=== PATIENT | female | born 1990 | race Caucasian/White ===

== ENCOUNTER 2017-01-10 19:32 | Emergency (ER) | payer SELFPAY ==
[~2017-01-10] VITALS: Ht 157.5 cm; Wt 61.0 kg
[~2017-01-10 19:32] MED LIST: FLAG500T PO; PNV-TAB PO
[2017-01-10 19:35] VITALS: BP 147/84; PULSE 82; RESP 14; TEMP 98.2; O2SAT 100
== END 2017-01-10 19:59 | disposition left against medical advice (07) ==
LOC: NED 19:32
DX: R68.89 Other general symptoms and signs (principal)
CPT/HCPCS: 99281

== ENCOUNTER 2017-02-08 19:01 | Emergency (ER) | payer MEDICAID ==
[2017-02-08 19:02] VITALS: BP 115/73; PULSE 105; RESP 18; TEMP 99; O2SAT 98
== END 2017-02-08 20:10 | disposition left against medical advice (07) ==
LOC: NED 19:01
DX: Z53.29 Procedure and treatment not carried out because of patient's decision for other reasons (principal)
CPT/HCPCS: 99281

== ENCOUNTER 2017-03-10 11:30 | Emergency (ER) | payer MEDICAID ==
[~2017-03-10] VITALS: Ht 157.5 cm; Wt 62.0 kg
[2017-03-10 11:32] VITALS: BP 126/71; PULSE 84; RESP 16; TEMP 98; O2SAT 99
[2017-03-10 11:51] VITALS: BP 109/59; PULSE 84; RESP 16; O2SAT 99
--- NOTE | 2017-03-10 12:09 | PD ---
HPI Chief Complaint: Related Problem Time Seen by Provider: 12:01 Travel History International Travel<30 days: No Contact w/Intl Traveler<30days: No Traveled to known affect area: No History of Present Illness HPI 27-year-old female presents to the emergency department for evaluation of abnormal vaginal discharge, pelvic cramping, spotting that occurred 2 days ago. Patient reports being 16 weeks 5 days . She states she had ultrasound 2 days ago at the [facility] 1 and and was told that she was 16 weeks and 3 days. She apparently went to the OB ED for evaluation and sent her back to the emergency department to prove that she was over 16 weeks . The patient is concerned that she has an STD. The patient reports being a G7, P2 with 3 previous abortions and one previous miscarriage. She has had no care at this point. Patient denies any other medical problems. She takes no prescribed medications. PFSH Past Medical History Medical History: Denies Significant Hx Influenza Vaccination: No ?: : 5 Para: 1 Miscarriage: 1 : 2 Social History Alcohol Use: No Tobacco Use: Yes Substance Use: No Allergies-Medications (Allergen,Severity, Reaction): Coded Allergies: No Known Allergies (Unverified , 03/10/17) Reported Meds & Prescriptions Reported Meds & Active Scripts Active No Active Prescriptions or Reported Medications Review of Systems Except as stated in HPI: all other systems reviewed are Neg Physical Exam Narrative GENERAL: Well-nourished, well-developed female patient, afebrile. SKIN: Focused skin assessment warm/dry. HEAD: Normocephalic. Atraumatic. EYES: No scleral icterus. No injection or drainage. NECK: Supple, trachea midline. No JVD or lymphadenopathy. CARDIOVASCULAR: Regular rate and rhythm without murmurs, gallops, or rubs. RESPIRATORY: Breath sounds equal bilaterally. No accessory muscle use. Lungs sounds are clear to auscultation. GASTROINTESTINAL: Abdomen soft, non-tender, nondistended. No abdominal or pelvic pain to palpation. MUSCULOSKELETAL: No cyanosis, or edema. BACK: Nontender without obvious deformity. No CVA tenderness. Data Data Last Documented VS Vital Signs Date Time Temp Pulse Resp B/P Pulse Ox O2 Delivery O2 Flow Rate FiO2 03/10/17 11:51 84 16 109/59 99 Room Air 03/10/17 11:32 98.0 Orders Beta Hcg (Quant/Titer) (03/10/17 12:13) Complete Blood Count With Diff (03/10/17 12:13) Basic Metabolic Panel (Bmp) (03/10/17 12:13) Us Pelvis (Ques Preg/Ectopic) (03/10/17 ) Iv Access Insert/Monitor (03/10/17 12:13) Urinalysis - C+S If Indicated (03/10/17 12:13) Ed Urine Pregnancytest Poc (03/10/17 12:13) Urine Culture (03/10/17 12:30) Labs Laboratory Tests Test 03/10/17 12:30 White Blood Count 11.5 TH/MM3 Red Blood Count 3.70 MIL/MM3 Hemoglobin 11.0 GM/DL Hematocrit 31.3 % Mean Corpuscular Volume 84.5 FL Mean Corpuscular Hemoglobin 29.8 PG Mean Corpuscular Hemoglobin 35.2 % Concent Red Cell Distribution Width 14.1 % Platelet Count 216 TH/MM3 Mean Platelet Volume 8.9 FL Neutrophils (%) (Auto) 74.0 % Lymphocytes (%) (Auto) 19.1 % Monocytes (%) (Auto) 5.8 % Eosinophils (%) (Auto) 0.9 % Basophils (%) (Auto) 0.2 % Neutrophils # (Auto) 8.5 TH/MM3 Lymphocytes # (Auto) 2.2 TH/MM3 Monocytes # (Auto) 0.7 TH/MM3 Eosinophils # (Auto) 0.1 TH/MM3 Basophils # (Auto) 0.0 TH/MM3 CBC Comment DIFF FINAL Differential Comment Urine Color YELLOW Urine Turbidity HAZY Urine pH 6.5 Urine Specific [place] 1.011 Urine Protein TRACE mg/dL Urine Glucose (UA) NEG mg/dL Urine Ketones NEG mg/dL Urine Occult Blood NEG Urine Nitrite NEG Urine Bilirubin NEG Urine Urobilinogen LESS THAN 2.0 MG/DL Urine Leukocyte Esterase SMALL Urine RBC 2 /hpf Urine WBC 1 /hpf Urine Squamous Epithelial 47 /hpf Cells Urine Bacteria MOD /hpf Microscopic Urinalysis Comment CULTURE INDICATED Sodium Level 137 MEQ/L Potassium Level 3.7 MEQ/L Chloride Level 104 MEQ/L Carbon Dioxide Level 24.8 MEQ/L Anion Gap 8 MEQ/L Blood Urea Nitrogen 6 MG/DL Creatinine 0.48 MG/DL Estimat Glomerular Filtration 153 ML/MIN Rate Random Glucose 81 MG/DL Calcium Level 8.6 MG/DL Human Chorionic Gonadotropin, 33372 MIU/ML Quant [facility] Medical Decision Making Medical Screen Exam Complete: Yes Emergency Medical Condition: Yes Medical Record Reviewed: Yes Differential Diagnosis Cervicitis versus UTI versus STD versus intrauterine Narrative Course 27-year-old female presents to the emergency department for evaluation of abnormal vaginal discharge, spotting 2 days ago, pelvic cramping. She reports being 16 weeks, 5 days . I discussed the case with my attending physician. UA, UPT, CBC, BMP, US are ordered and pending. According to previous records, patient's blood type is O+. UA shows small leukocyte esterase, moderate bacteria. UPT is positive. CBC shows WBC 11.5, hemoglobin 11.0, hematocrit 31.3. BMP shows no acute abnormality. Beta hCG is 18,612. US was attempted in the emergency department , the roadway technician since the patient is over 16 weeks and cannot proceed with the exam. I called the OB ED at the hospital. They will see the patient in the OB ED due to being 16 weeks . The patient will be transported up to the OB ED. When I originally discussed this with the patient, she agreed to go to the ED. However, shortly after, the patient was found walking on the emergency department with her IV in. She states that she is sick of waiting and will not be seen any farther. The patient is where the risk of not being seen and having her symptoms treated. The IV was removed. The patient will be leaving AGAINST MEDICAL ADVICE. AMA: The risks of leaving against medical advice without further evaluation treatment were discussed with the patient. These risks include cardiac dysfunction, cardiac dysrhythmia, possible heart attack, possible stroke or . The patient indicated understanding of these risks and appeared to have the capacity to make this decision. Diagnosis Primary Impression: Left against medical advice Additional Impression: Vaginal discharge during Qualified Code: O26.892 - Vaginal discharge during , second trimester Scripts No Active Prescriptions or Reported Meds Disposition: 07 AGAINST MEDICAL ADVICE Jenifer Quintana March 10, 2017 12:09
[2017-03-10 12:46] LABS: AUTOMATED NEUTROPHIL # 8.5 TH/MM3 (1.8-7.7); BASOPHIL % 0.2 % (0.0-2.0); EOSINOPHIL # 0.1 TH/MM3 (0-0.4); EOSINOPHIL % 0.9 % (0.0-4.0); HEMATOCRIT 31.3 % (35.0-46.0); HEMO FLAGS DIFF FINAL; LYMPH % 19.1 % (9.0-44.0); LYMPHOCYTE # 2.2 TH/MM3 (1.0-4.8); MEAN CELL VOLUME 84.5 FL (80.0-100.0); MEAN CORPUSCULAR HEMOGLOBIN 29.8 PG (27.0-34.0); MEAN CORPUSCULAR HGB CONC 35.2 % (32.0-36.0); MONO % 5.8 % (0.0-8.0); PLATELET COUNT 216 TH/MM3 (150-450); RED CELL DISTRIBUTION WIDTH 14.1 % (11.6-17.2); WHITE BLOOD COUNT 11.5 TH/MM3 (4.0-11.0)
[2017-03-10 12:58] LABS: BACTERIA, URINE MOD /hpf; BLOOD, URINE NEG (NEG); COMMENT (UR) CULTURE INDICATED; CULTURE IF INDICATED CULTURE INDICATED; GLUCOSE,URINE NEG (NEG); KETONE, URINE NEG (NEG); NITRITE,URINE NEG (NEG); PH, URINE 6.5 (5.0-8.5); SQUAMOUS EPITHELIAL CELL URINE 47 /hpf (0-5); URINE COLOR YELLOW (YELLW/STRAW)
[2017-03-10 13:06] LABS: BICARBONATE 24.8 MEQ/L (21.0-32.0); POTASSIUM 3.7 MEQ/L (3.5-5.1)
== END 2017-03-10 14:42 | disposition left against medical advice (07) ==
LOC: NEPC 11:30
DX: O26.892 Other specified pregnancy related conditions, second trimester (principal); N89.8 Other specified noninflammatory disorders of vagina; B96.89 Other specified bacterial agents as the cause of diseases classified elsewhere; Z3A.16 16 weeks gestation of pregnancy; Z53.21 Procedure and treatment not carried out due to patient leaving prior to being seen by health care provider
CPT/HCPCS: 80048; 81001; 84702; 84703; 85025; 87086; 99284